=== PATIENT | male | born 1980 | race Hispanic/Latino ===

== ENCOUNTER 2018-03-10 04:37 | Emergency (ER) | payer SELFPAY ==
[2018-03-10] MEDS ORDERED: ONDANSETRON 4 MG/2 ML VIAL ONE (04:59)
[2018-03-10] MEDS ORDERED: NA CHLORIDE 0.9% 1,000 ML ONE (05:13)
[2018-03-10] MEDS ORDERED: FAMOTIDINE 20 MG/2 ML VIAL IV ONE (05:13)
[2018-03-10] MEDS ORDERED: KETOROLAC 30 MG/ML INJ ONE (05:22)
[2018-03-10 05:58] LABS: Absolute Lymphocytes (CBC) 0.7 K/uL (0.7-4.9); Absolute Monocytes 0.6 K/uL (0.1-1.3); Absolute Neutrophil 5.3 K/uL (1.8-8.0); Basophils % 0.2 % (0-1.3); Eosinophils % 1.6 % (0-4.4); Hematocrit 39.6 % (39.6-49.0); Lymphocytes % 10.5 % (15.3-44.8); MCH 32.7 pg (27.0-35.0); MCV 94.4 fL (80-100); MPV 8.1 fL (7.6-11.3); Monocytes % 8.6 % (3.3-12.3); RBC Red Blood Cell Count 4.19 M/uL (4.33-5.43)
[2018-03-10 06:11] LABS: ALT/SGPT 46 U/L (12-78); AST/SGOT 42 U/L (15-37); Albumin 3.5 g/dL (3.4-5.0); Alkaline Phosphatase 99 U/L (45-117); BUN Blood Urea Nitrogen 22 mg/dL (7-18); Bicarbonate 26 mmol/L (21-32); Bilirubin Direct 0.2 mg/dL (0-0.2); Bilirubin Total 0.7 mg/dL (0.2-1.0); Glucose Level 94 mg/dL (74-106); Lipase 113 U/L (73-393); Potassium 3.5 mmol/L (3.5-5.1); Protein, Total 6.9 g/dL (6.4-8.2); Sodium Level 142 mmol/L (136-145)
[2018-03-10 08:01] LABS: Urine Blood NEGATIVE (NEG); Urine Glucose NEGATIVE (NEG); Urine Protein NEGATIVE (NEG)
[2018-03-10 08:07] LABS: Urine RBC <5 /HPF (NONE SEEN)
--- NOTE | 2018-03-10 08:07 | RAD REPORT ---
EXAM DESCRIPTION: CTAbdomen Pelvis W Contrast - 03/10/2018 7:26 am CLINICAL HISTORY: Abdominal pain. ABD PAIN COMPARISON: No comparisons TECHNIQUE: Biphasic CT imaging of the abdomen and pelvis was performed with 100 ml non-ionic IV cont rast. All CT scans are performed using dose optimization technique as appropriate and may include automated exposure control or mA/KV adjustment according to patient size. FINDINGS: The lung bases are clear.Cholecystectomy clips. The liver, spleen, pancreas, adrenal glands and kidneys are within normal limits. No bowel obstruction, free air, free fluid or abscess. Scattered colonic diverticulosis. The appendix is normal. No evidence of significant lymphadenopathy. No suspicious bony findings. Hardware is present proximal left femur. IMPRESSION: No acute intra-abdominal or pelvic finding.
[2018-03-10 08:08] LABS: Urine Bacteria <20 /HPF (NONE SEEN); Urine Culture Reflex Order NOT NEEDED
--- NOTE | 2018-03-10 10:12 | ER ---
Nurse's Notes [facility] Name: Sal Woods Jr Age: 37 yrs Sex: Male : 1980 Arrival Date: 03/10/2018 Time: 04:38 Bed 19 Private MD: Diagnosis: Vomiting;Diarrhea, unspecified;Abdominal tenderness Presentation: 03/10 04:47 Presenting complaint: Patient states: N/V/D since yesterday afternoon. Transition of aa1 care: patient was not received from another setting of care. Onset of symptoms was March 09, 2018. Risk Assessment: Do you want to hurt yourself or someone else? Patient reports no desire to harm self or others. Initial Sepsis Screen: Does the patient meet any 2 criteria? No. Patient's initial sepsis screen is negative. Does the patient have a suspected source of infection? No. Patient's initial sepsis screen is negative. Care prior to arrival: None. 04:47 Method Of Arrival: Ambulatory aa1 04:47 Acuity: LOPEZ 3 aa1 Historical: - Allergies: 04:48 No Known Allergies; aa1 - Home Meds: 04:48 lisinopril 10 mg Oral tab 1 tab once daily [Active]; Synthroid 125 mcg Oral tab 1 tab aa1 once daily [Active]; clonazepam 2 mg Oral tab as needed [Active]; - PMHx: 04:48 Anxiety; Hypertension; Hypothyroidism; aa1 - PSHx: 04:48 Cholecystectomy; L femur sx; aa1 - Immunization history:: Flu vaccine is not up to date. - Social history:: Smoking status: Patient/guardian denies using tobacco. - Ebola Screening: : No symptoms or risks identified at this time. - Family history:: not pertinent. - Hospitalizations: : No recent hospitalization is reported. Screenin:48 Abuse screen: Denies threats or abuse. Nutritional screening: No deficits noted. ea Tuberculosis screening: No symptoms or risk factors identified. Fall Risk None identified. Assessment: 04:45 General: Appears uncomfortable, Behavior is calm, cooperative, appropriate for age. ea Pain: Complains of pain in right upper quadrant and left upper quadrant Pain currently is 8 out of 10 on a pain scale. Quality of pain is described as aching, crampy, Pain began gradually, Is continuous. Neuro: Level of Consciousness is awake, alert, obeys commands, Oriented to person, place, time, situation. Cardiovascular: Heart tones S1 S2 present Patient's skin is warm and dry. Respiratory: Airway is patent Respiratory effort is even, unlabored, Respiratory pattern is regular, symmetrical, Breath sounds are clear bilaterally. GI: Abdomen is round Bowel sounds present X 4 quads. Reports upper abdominal pain, diarrhea, nausea, vomiting. : No signs and/or symptoms were reported regarding the genitourinary system. EENT: No signs and/or symptoms were reported regarding the EENT system. Derm: Skin is dry, Skin is pale, Skin temperature is warm. Musculoskeletal: Circulation, motion, and sensation intact. 05:45 Reassessment: Patient and/or family updated on plan of care and expected duration. Pain ea level reassessed. Patient is alert, oriented x 3, equal unlabored respirations, skin warm/dry/pink. Patient states symptoms have improved. 06:12 Reassessment: Patient and/or family updated on plan of care and expected duration. Pain ea level reassessed. Patient is alert, oriented x 3, equal unlabored respirations, skin warm/dry/pink. 06:28 Reassessment: Pt taken to CT. ea 06:52 Reassessment: Patient and/or family updated on plan of care and expected duration. Pain ea level reassessed. Patient is alert, oriented x 3, equal unlabored respirations, skin warm/dry/pink. Pt returned from CT. 07:45 General: Appears in no apparent distress. comfortable, Behavior is calm, cooperative, jb4 appropriate for age. Pain: Complains of pain in epigastric area Pain currently is 2 out of 10 on a pain scale. Quality of pain is described as dull, Pain began 1 day ago. Is continuous. Neuro: Level of Consciousness is awake, alert, obeys commands, Oriented to person, place, time, situation. Cardiovascular: Heart tones S1 S2 present Patient's skin is warm and dry. Respiratory: Airway Respiratory effort is even, unlabored, Respiratory pattern is regular, symmetrical, Breath sounds are clear bilaterally. GI: Abdomen is round Bowel sounds present X 4 quads. Abd is soft and non tender X 4 quads. Abdomen is tender to palpation in epigastric area Reports. : No signs and/or symptoms were reported regarding the genitourinary system. EENT: No signs and/or symptoms were reported regarding the EENT system. Derm: Skin is intact, Skin is dry, Skin is normal, Skin temperature is warm. Musculoskeletal: 08:45 Reassessment: Patient and/or family updated on plan of care and expected duration. Pain jb4 level reassessed. Patient is alert, oriented x 3, equal unlabored respirations, skin warm/dry/pink. 09:21 Reassessment: Patient appears in no apparent distress at this time. Patient and/or tw2 family updated on plan of care and expected duration. Pain level reassessed. Patient is alert, oriented x 3, equal unlabored respirations, skin warm/dry/pink. 10:21 Reassessment: Patient appears in no apparent distress at this time. Patient and/or tw2 family updated on plan of care and expected duration. Pain level reassessed. Patient is alert, oriented x 3, equal unlabored respirations, skin warm/dry/pink. Vital Signs: 04:48 BP 130 / 88; Pulse 74; Resp 18; Temp 97.9; Pulse Ox 99% on R/A; Weight 97.52 kg; Height aa1 5 ft. 8 in. (172.72 cm); Pain 2/10; 05:30 BP 114 / 72; Pulse 65; Resp 18; Pulse Ox 98% on R/A; ea 06:00 BP 118 / 70; Pulse 68; Resp 18; Pulse Ox 98% ; ea 06:54 BP 129 / 84; Pulse 59; Resp 18; Pulse Ox 99% on R/A; ea 08:00 BP 123 / 95; Pulse 72; Resp 16; Pulse Ox 99% ; Pain 2/10; jb4 09:00 BP 113 / 71; Pulse 52; Resp 18; Pulse Ox 97% on R/A; Pain 0/10; jb4 10:21 BP 104 / 69; Pulse 51; Resp 18; Pulse Ox 99% on R/A; tw2 04:48 Body Mass Index 32.69 (97.52 kg, 172.72 cm) aa1 ED Course: 04:38 Patient arrived in ED. do 04:44 Yana Tavares, MOSHE is Primary Nurse. ea 04:46 Juan J Veliz MD is Attending Physician. wa 04:47 Triage completed. aa1 04:48 Arm band placed on right wrist. Patient placed in an exam room, on a stretcher, on ea pulse oximetry. 04:48 Patient has correct armband on for positive identification. Bed in low position. Call ea light in reach. Side rails up X 1. 05:39 Lab(s) recollected, by me, sent to lab. aa1 05:49 Inserted saline lock: 20 gauge in left antecubital area, using aseptic technique. oe 06:[address] via wheelchair. kw1 06:40 CT Abd/Pelvis - W/Contrast In Process Unspecified. EDMS 06:45 CT completed. Patient tolerated procedure well. Patient moved back from CT. kw1 07:03 Report given to Raymond MESA. ea 07:48 Raymond Pat, MOSHE is Primary Nurse. hj 08:16 Attending Physician role handed off by Juan J Veliz MD estelle 08:16 James Rivera MD is Attending Physician. estelle 09:20 Primary Nurse role handed off by Raymond Pat, MOSHE tw2 09:20 Susan Mendez RN is Primary Nurse. tw2 10:21 No provider procedures requiring assistance completed. IV discontinued, intact, tw2 bleeding controlled, No redness/swelling at site. Pressure dressing applied. Administered Medications: 05:14 Drug: Zofran 4 mg Route: IVP; Site: left antecubital; ea 06:07 Follow up: Response: No adverse reaction; Marked relief of symptoms ea 07:49 Follow up: Response: Nausea is decreased hj 05:14 Drug: Pepcid 20 mg Route: IVP; Site: left antecubital; ea 06:07 Follow up: Response: No adverse reaction ea 07:48 Follow up: Response: No adverse reaction hj 05:14 Drug: NS 0.9% 1000 ml Route: IV; Rate: 1 bolus; Site: left antecubital; ea 06:05 Follow up: Response: No adverse reaction; IV Status: Completed infusion; IV Intake: ea 1000ml 07:48 Follow up: IV Status: Completed infusion hj 06:05 Drug: TORadol 30 mg Route: IVP; Site: left antecubital; ea 07:48 Follow up: Response: No adverse reaction; Pain is decreased hj Intake: 06:05 IV: 1000ml; Total: 1000ml. ea Outcome: 10:12 Discharge ordered by . estelle 10:21 Discharged to home ambulatory. tw2 10:21 Condition: stable 10:21 Discharge instructions given to patient, Instructed on discharge instructions, follow up and referral plans. no drinking with medication, no driving heavy equipment, medication usage, Demonstrated understanding of instructions, follow-up care, medications, Prescriptions given X 3. 10:22 Patient left the ED. tw2 Signatures: Dispatcher [employer] EDMS Brittani Perry, RN RN aa1 James Rivera MD MD cha Joaquin, Henry RN RN Aparna Alicia Tara, RN RN tw2 Justin Galvin RN RN jb4 Arnoldo Aleman Elena, RN RN ea Appiah, William, MD MD wa Wilhelm, Kimberly kw1 Corrections: (The following items were deleted from the chart) 09:26 09:24 BP 113 / 71; Pulse 52bpm; Resp 18bpm; Pulse Ox 97% RA; jb4 jb4
--- NOTE | 2018-03-10 10:12 | EDPHYS ---
Physician Documentation [facility] Name: Sal Woods Jr Age: 37 yrs Sex: Male : 1980 Arrival Date: 03/10/2018 Time: 04:38 Bed 19 Private MD: ED Physician James Rivera HPI: 03/10 06:11 This 37 yrs old Male presents to ER via Ambulatory with complaints of wa Nausea/Vomiting/Diarrhea. 06:11 The patient presents to the emergency department with nausea, vomiting, diarrhea, wa abdominal pain, of the abdomen, described as achy, and does not radiate. Onset: The symptoms/episode began/occurred just prior to arrival. Possible causes: unknown. The symptoms are aggravated by nothing. The symptoms are alleviated by nothing. Associated signs and symptoms: Pertinent positives: abdominal pain, diarrhea, nausea, vomiting. Severity of symptoms: At their worst the symptoms were moderate in the emergency department the symptoms are unchanged. The patient has not experienced similar symptoms in the past. The patient has not recently seen a physician. Historical: - Allergies: 04:48 No Known Allergies; aa1 - Home Meds: 04:48 lisinopril 10 mg Oral tab 1 tab once daily [Active]; Synthroid 125 mcg Oral tab 1 tab aa1 once daily [Active]; clonazepam 2 mg Oral tab as needed [Active]; - PMHx: 04:48 Anxiety; Hypertension; Hypothyroidism; aa1 - PSHx: 04:48 Cholecystectomy; L femur sx; aa1 - Immunization history:: Flu vaccine is not up to date. - Social history:: Smoking status: Patient/guardian denies using tobacco. - Ebola Screening: : No symptoms or risks identified at this time. - Family history:: not pertinent. - Hospitalizations: : No recent hospitalization is reported. ROS: 06:12 Constitutional: Negative for fever, chills, and weight loss, Eyes: Negative for injury, wa pain, redness, and discharge, ENT: Negative for injury, pain, and discharge, Neck: Negative for injury, pain, and swelling, Cardiovascular: Negative for chest pain, palpitations, and edema, Respiratory: Negative for shortness of breath, cough, wheezing, and pleuritic chest pain, Back: Negative for injury and pain, : Negative for injury, bleeding, discharge, and swelling, MS/Extremity: Negative for injury and deformity, Skin: Negative for injury, rash, and discoloration, Neuro: Negative for headache, weakness, numbness, tingling, and seizure, Psych: Negative for depression, anxiety, suicide ideation, homicidal ideation, and hallucinations. 06:12 Abdomen/GI: Positive for abdominal pain, nausea, vomiting, diarrhea. Exam: 06:13 Constitutional: This is a well developed, well nourished patient who is awake, alert, wa and in no acute distress. Head/Face: Normocephalic, atraumatic. Eyes: Pupils equal round and reactive to light, extra-ocular motions intact. Lids and lashes normal. Conjunctiva and sclera are non-icteric and not injected. Cornea within normal limits. Periorbital areas with no swelling, redness, or edema. ENT: Nares patent. No nasal discharge, no septal abnormalities noted. Tympanic membranes are normal and external auditory canals are clear. Oropharynx with no redness, swelling, or masses, exudates, or evidence of obstruction, uvula midline. Mucous membranes moist. Neck: Trachea midline, no thyromegaly or masses palpated, and no cervical lymphadenopathy. Supple, full range of motion without nuchal rigidity, or vertebral point tenderness. No Meningismus. Chest/axilla: Normal chest wall appearance and motion. Nontender with no deformity. No lesions are appreciated. Cardiovascular: Regular rate and rhythm with a normal S1 and S2. No gallops, murmurs, or rubs. Normal PMI, no JVD. No pulse deficits. Respiratory: Lungs have equal breath sounds bilaterally, clear to auscultation and percussion. No rales, rhonchi or wheezes noted. No increased work of breathing, no retractions or nasal flaring. Back: No spinal tenderness. No costovertebral tenderness. Full range of motion. Skin: Warm, dry with normal turgor. Normal color with no rashes, no lesions, and no evidence of cellulitis. MS/ Extremity: Pulses equal, no cyanosis. Neurovascular intact. Full, normal range of motion. Neuro: Awake and alert, GCS 15, oriented to person, place, time, and situation. Cranial nerves II-XII grossly intact. Motor strength 5/5 in all extremities. Sensory grossly intact. Cerebellar exam normal. Normal gait. Psych: Awake, alert, with orientation to person, place and time. Behavior, mood, and affect are within normal limits. 06:13 Abdomen/GI: Inspection: abdomen appears normal, Bowel sounds: normal, in all quadrants, Palpation: soft, in all quadrants, mild abdominal tenderness, in the epigastric area, right upper quadrant and left upper quadrant. Vital Signs: 04:48 BP 130 / 88; Pulse 74; Resp 18; Temp 97.9; Pulse Ox 99% on R/A; Weight 97.52 kg; Height aa1 5 ft. 8 in. (172.72 cm); Pain 2/10; 05:30 BP 114 / 72; Pulse 65; Resp 18; Pulse Ox 98% on R/A; ea 06:00 BP 118 / 70; Pulse 68; Resp 18; Pulse Ox 98% ; ea 06:54 BP 129 / 84; Pulse 59; Resp 18; Pulse Ox 99% on R/A; ea 08:00 BP 123 / 95; Pulse 72; Resp 16; Pulse Ox 99% ; Pain 2/10; jb4 09:00 BP 113 / 71; Pulse 52; Resp 18; Pulse Ox 97% on R/A; Pain 0/10; jb4 10:21 BP 104 / 69; Pulse 51; Resp 18; Pulse Ox 99% on R/A; tw2 04:48 Body Mass Index 32.69 (97.52 kg, 172.72 cm) aa1 MDM: 04:46 Patient medically screened. ks 06:13 Differential diagnosis: Nonspecific abd pain, cholecystitis, pancreatitis, viral ks gastroenteritis, gastroenteritis. 03/11 06:59 Data reviewed: vital signs, nurses notes. Test interpretation: by ED physician or ks midlevel provider: labs noted wnl. CT abd/pelvis: no acute process. Response to treatment: the patient's symptoms have markedly improved after treatment. 03/10 04:54 Order name: Basic Metabolic Panel; Complete Time: 07:02 ks 03/10 04:54 Order name: CBC with Diff; Complete Time: 06:10 ks 03/10 04:54 Order name: Hepatic Function; Complete Time: 07:02 03/10 04:54 Order name: Lipase; Complete Time: 07:02 ks 03/10 04:54 Order name: Urine Microscopic Only; Complete Time: 10:06 ks 03/10 07:56 Order name: Urine Dipstick--Ancillary (enter results); Complete Time: 10:06 03/10 04:54 Order name: IV Saline Lock; Complete Time: 05:42 ks 03/10 04:54 Order name: Labs collected and sent; Complete Time: 05:43 ks 03/10 04:54 Order name: Urine Dipstick-Ancillary (obtain specimen); Complete Time: 08:07 ks 03/10 06:11 Order name: CT Abd/Pelvis - W/Contrast; Complete Time: 10:06 ks Administered Medications: 03/10 05:14 Drug: Zofran 4 mg Route: IVP; Site: left antecubital; ea 06:07 Follow up: Response: No adverse reaction; Marked relief of symptoms ea 07:49 Follow up: Response: Nausea is decreased hj 05:14 Drug: Pepcid 20 mg Route: IVP; Site: left antecubital; ea 06:07 Follow up: Response: No adverse reaction ea 07:48 Follow up: Response: No adverse reaction hj 05:14 Drug: NS 0.9% 1000 ml Route: IV; Rate: 1 bolus; Site: left antecubital; ea 06:05 Follow up: Response: No adverse reaction; IV Status: Completed infusion; IV Intake: ea 1000ml 07:48 Follow up: IV Status: Completed infusion hj 06:05 Drug: TORadol 30 mg Route: IVP; Site: left antecubital; ea 07:48 Follow up: Response: No adverse reaction; Pain is decreased hj Disposition: 03/10/18 10:12 Discharged to Home. Impression: Vomiting, Diarrhea, unspecified, Abdominal tenderness. - Condition is Stable. - Discharge Instructions: Abdominal Pain, Adult, Food Choices to Help Relieve Diarrhea, Adult, Diarrhea, Adult, Nausea and Vomiting, Adult, Nausea and Vomiting, Adult, [id number], Abdominal Pain, Adult, [id number], Diarrhea, Adult, Tebz-sw-[id number]. - Prescriptions for Bentyl 20 mg Oral Tablet - take 1 tablet by ORAL route every 6 hours As needed; 20 tablet. Pepcid 20 mg Oral Tablet - take 1 tablet by ORAL route every 12 hours for 10 days; 20 tablet. Zofran 4 mg Oral Tablet - take 1 tablet by ORAL route every 12 hours As needed; 20 tablet. - Medication Reconciliation Form, Thank You Letter, Antibiotic Education, Prescription Opioid Use, Work release form form. - Follow up: Private Physician; When: 2 - 3 days; Reason: Recheck today's complaints, Continuance of care, Re-evaluation by your physician. - Problem is new. - Symptoms have improved. Signatures: Dispatcher [employer] EDBrittani Corcoran, RN RN aa1 James Rivera MD MD cha Wise, Tara, RN RN tw2 Yana Tavares RN RN Juan J Lovelace MD MD wa Joaquin, Henry RN hj Corrections: (The following items were deleted from the chart) 10:22 10:12 03/10/2018 10:12 Discharged to Home. Impression: Vomiting; Diarrhea, unspecified; tw2 Abdominal tenderness. Condition is Stable. Forms are Work release form, Medication Reconciliation Form, Thank You Letter, Antibiotic Education, Prescription Opioid Use. Follow up: Private Physician; When: 2 - 3 days; Reason: Recheck today's complaints, Continuance of care, Re-evaluation by your physician. Problem is new. Symptoms have improved. estelle
== END 2018-03-10 10:22 | disposition home or self-care (01) ==
LOC: ER 04:37
DX: R11.2 Nausea with vomiting, unspecified (principal); R19.7 Diarrhea, unspecified; R10.9 Unspecified abdominal pain; I10 Essential (primary) hypertension; E03.9 Hypothyroidism, unspecified
CPT/HCPCS: 36415; 74177; 80048; 80076; 81003; 81015; 83690; 85025; 96361; 96374; 96375; 99284; J2405; J7030; Q9967

== ENCOUNTER 2018-03-15 11:31 | Emergency (ER) | payer SELFPAY ==
[2018-03-15] MEDS ORDERED: DOXYCYCLINE 100 MG CAP PO ONE (11:51)
[2018-03-15] MEDS ORDERED: TETANUS & DIPHTHERIA TOX,ADULT 0.5 ML VIAL ONE (11:51)
--- NOTE | 2018-03-15 11:53 | ER ---
Nurse's Notes [facility] Name: Sal Woods Jr Age: 37 yrs Sex: Male : 1980 Arrival Date: 03/15/2018 Time: 11:33 Bed 17 Private MD: Diagnosis: Puncture wound without foreign body of left hand Presentation: 03/15 11:41 Presenting complaint: Patient states: was stuck in left hand by catfish fin between iw webbing of thumb and index finger, has redness and swelling at puncture site. Transition of care: patient was not received from another setting of care. Onset of symptoms was March 14, 2018. Risk Assessment: Do you want to hurt yourself or someone else? Patient reports no desire to harm self or others. Initial Sepsis Screen: Does the patient meet any 2 criteria? No. Patient's initial sepsis screen is negative. Does the patient have a suspected source of infection? No. Patient's initial sepsis screen is negative. Care prior to arrival: None. 11:41 Method Of Arrival: Ambulatory iw 11:41 Acuity: LOPEZ 4 iw Historical: - Allergies: 11:44 NKA; iw - Home Meds: 11:44 clonazepam 2 mg Oral tab as needed [Active]; lisinopril 10 mg Oral tab 1 tab once daily iw [Active]; Synthroid 125 mcg Oral tab 1 tab once daily [Active]; - PMHx: 11:44 Anxiety; Hypertension; Hypothyroidism; iw - PSHx: 11:44 Cholecystectomy; L femur sx; iw - Immunization history:: Adult Immunizations Last tetanus immunization: unknown. - Social history:: Smoking status: Patient/guardian denies using tobacco. - Ebola Screening: : Patient negative for fever greater than or equal to 101.5 degrees Fahrenheit, and additional compatible Ebola Virus Disease symptoms Patient denies exposure to infectious person Patient denies travel to an Ebola-affected area in the 21 days before illness onset No symptoms or risks identified at this time. Screenin:57 Abuse screen: Denies threats or abuse. Nutritional screening: No deficits noted. em Tuberculosis screening: No symptoms or risk factors identified. Fall Risk None identified. Assessment: 11:58 General: Appears in no apparent distress. comfortable, Behavior is calm, cooperative, em Reports catfish jose stuck in left hand between webbing of thumb and index finger, small puncture wound noted, with clear drainage. Pain: Complains of pain in Left first web space Pain currently is 3 out of 10 on a pain scale. Neuro: Level of Consciousness is awake, alert, obeys commands, Oriented to person, place, time, situation. Cardiovascular: Capillary refill < 3 seconds Patient's skin is warm and dry. Respiratory: Airway is patent Respiratory effort is even, unlabored, Respiratory pattern is regular, symmetrical. GI: Abdomen is round. : No signs and/or symptoms were reported regarding the genitourinary system. Derm: Wound noted Left first web space. Musculoskeletal: Range of motion: intact in all extremities. 12:05 Reassessment: Patient appears in no apparent distress at this time. I agree with above iw assessment by John Cardoza LVN. Vital Signs: 11:44 BP 128 / 88; Pulse 58; Resp 16 S; Temp 98.2; Pulse Ox 98% on R/A; Weight 97.52 kg; em Height 5 ft. 8 in. (172.72 cm); Pain 210; 11:44 Body Mass Index 32.69 (97.52 kg, 172.72 cm) em ED Course: 11:33 Patient arrived in ED. rg4 11:37 Elmer White PA is PHCP. jr8 11:37 James Rivera MD is Attending Physician. jr8 11:41 John Cardoza LVN is Primary Nurse. em 11:43 Triage completed. iw 11:44 Arm band placed on. iw 11:57 Patient has correct armband on for positive identification. em 12:01 No provider procedures requiring assistance completed. Patient did not have IV access em during this emergency room visit. Administered Medications: 11:55 Drug: Tetanus-Diphtheria Toxoid Adult 0.5 ml {Employment Trainer: [employer]. Exp: em 04/30/2019. Lot #: [id number]. } Route: IM; Site: left deltoid; 12:10 Follow up: Response: No adverse reaction em 11:55 Drug: Doxycycline 100 mg Route: PO; em 12:11 Follow up: Response: No adverse reaction em Outcome: 11:52 Discharge ordered by . jr8 12:11 Discharged to home ambulatory. em 12:11 Condition: good 12:11 Discharge instructions given to patient, Instructed on discharge instructions, follow up and referral plans. medication usage, Demonstrated understanding of instructions, follow-up care, medications, wound care. 12:12 Patient left the ED. em Signatures: John Cardoza LVN MEDICAL EQUIPMENT REPAIRER em Kala Hyman RN RN iw Elmer White PA PA jr8 Milagros Ortega rg4 Corrections: (The following items were deleted from the chart) 11:56 11:44 Pulse 58bpm; Resp 16bpm; Spontaneous; Pulse Ox 98% RA; Temp 98.2F; 97.52 kg; em Height 5 ft. 8 in.; BMI: 32.6; Pain 2/10; iw
--- NOTE | 2018-03-15 11:53 | EDPHYS ---
Physician Documentation [facility] Name: Sal Woods Jr Age: 37 yrs Sex: Male : 1980 Arrival Date: 03/15/2018 Time: 11:33 Bed 17 Private MD: ED Physician James Rivera HPI: 03/15 11:45 This 37 yrs old Male presents to ER via Ambulatory with complaints of Hand jr8 Swelling. 11:45 The patient or guardian reports pain, a puncture wound, fish jose. The complaints jr8 affect the 1st web space left hand . Onset: The symptoms/episode began/occurred acutely, yesterday. Modifying factors: The symptoms are alleviated by nothing, the symptoms are aggravated by movement. Associated signs and symptoms: The patient has no apparent associated signs or symptoms. Severity of symptoms: At their worst the symptoms were mild, in the emergency department the symptoms are unchanged. The patient has not experienced similar symptoms in the past. The patient has not recently seen a physician. Was fishing and was punctured by catfish jose in hand . Historical: - Allergies: 11:44 NKA; iw - Home Meds: 11:44 clonazepam 2 mg Oral tab as needed [Active]; lisinopril 10 mg Oral tab 1 tab once daily iw [Active]; Synthroid 125 mcg Oral tab 1 tab once daily [Active]; - PMHx: 11:44 Anxiety; Hypertension; Hypothyroidism; iw - PSHx: 11:44 Cholecystectomy; L femur sx; iw - Immunization history:: Adult Immunizations Last tetanus immunization: unknown. - Social history:: Smoking status: Patient/guardian denies using tobacco. - Ebola Screening: : Patient negative for fever greater than or equal to 101.5 degrees Fahrenheit, and additional compatible Ebola Virus Disease symptoms Patient denies exposure to infectious person Patient denies travel to an Ebola-affected area in the 21 days before illness onset No symptoms or risks identified at this time. ROS: 11:45 Eyes: Negative for injury, pain, redness, and discharge, ENT: Negative for injury, jr8 pain, and discharge, Neck: Negative for injury, pain, and swelling, Cardiovascular: Negative for chest pain, palpitations, and edema, Respiratory: Negative for shortness of breath, cough, wheezing, and pleuritic chest pain, Abdomen/GI: Negative for abdominal pain, nausea, vomiting, diarrhea, and constipation, Back: Negative for injury and pain, Skin: Negative for injury, rash, and discoloration, Neuro: Negative for headache, weakness, numbness, tingling, and seizure. 11:45 MS/extremity: Positive for pain, puncture, tenderness, of the 1st web space left hand. Exam: 11:45 Cardiovascular: Regular rate and rhythm with a normal S1 and S2. No gallops, murmurs, jr8 or rubs. Normal PMI, no JVD. No pulse deficits. Respiratory: Lungs have equal breath sounds bilaterally, clear to auscultation and percussion. No rales, rhonchi or wheezes noted. No increased work of breathing, no retractions or nasal flaring. Skin: Warm, dry with normal turgor. Normal color with no rashes, no lesions, and no evidence of cellulitis. Neuro: Awake and alert, GCS 15, oriented to person, place, time, and situation. Cranial nerves II-XII grossly intact. Motor strength 5/5 in all extremities. Sensory grossly intact. Cerebellar exam normal. Normal gait. 11:45 Musculoskeletal/extremity: Extremities: grossly normal except: noted in the 1st web space left hand: pain, puncture, ROM: intact in all extremities, full active range of motion, full passive range of motion, Circulation is intact in all extremities. Sensation intact. Vital Signs: 11:44 BP 128 / 88; Pulse 58; Resp 16 S; Temp 98.2; Pulse Ox 98% on R/A; Weight 97.52 kg; em Height 5 ft. 8 in. (172.72 cm); Pain 2/10; 11:44 Body Mass Index 32.69 (97.52 kg, 172.72 cm) em MDM: 11:38 Patient medically screened. jr8 11:51 Data reviewed: vital signs, nurses notes, and as a result, I will discharge patient. jr8 Data interpreted: Pulse oximetry: on room air is 98 %. Interpretation: normal. Counseling: I had a detailed discussion with the patient and/or guardian regarding: the historical points, exam findings, and any diagnostic results supporting the discharge/admit diagnosis, the need for outpatient follow up, a family practitioner, to return to the emergency department if symptoms worsen or persist or if there are any questions or concerns that arise at home. ED course: return precautions give. S/S given to patient that would show that it is becoming infected . Administered Medications: 11:55 Drug: Tetanus-Diphtheria Toxoid Adult 0.5 ml {Pouncer: [address] Exp: em 04/30/2019. Lot #: [id number]. } Route: IM; Site: left deltoid; 12:10 Follow up: Response: No adverse reaction em 11:55 Drug: Doxycycline 100 mg Route: PO; em 12:11 Follow up: Response: No adverse reaction em Disposition: 03/15/18 11:52 Discharged to Home. Impression: Puncture wound without foreign body of left hand. - Condition is Stable. - Discharge Instructions: Puncture Wound. - Prescriptions for Doxycycline Monohydrate 100 mg Oral Tablet - take 1 tablet by ORAL route every 12 hours for 10 days; 20 tablet. - Medication Reconciliation Form, Thank You Letter, Antibiotic Education, Prescription Opioid Use form. - Follow up: Private Physician; When: 5 - 6 days; Reason: Recheck today's complaints, Continuance of care, Re-evaluation by your physician. - Problem is new. - Symptoms have improved. Addendum: 03/16/2018 14:18 Co-signature as Attending Physician, James Rivera MD I agree with the assessment and c bradley plan of care. Signatures: James Rivera MD MD cha Munoz, Edgar, AMBULATORY CARE AMBULATORY CARE em Kala Hyman RN RN iw Roszak, Josh, PA PA jr8 Corrections: (The following items were deleted from the chart) 03/15 12:12 11:52 03/15/2018 11:52 Discharged to Home. Impression: Puncture wound without foreign em body of left hand. Condition is Stable. Forms are Medication Reconciliation Form, Thank You Letter, Antibiotic Education, Prescription Opioid Use. Follow up: Private Physician; When: 5 - 6 days; Reason: Recheck today's complaints, Continuance of care, Re-evaluation by your physician. Problem is new. Symptoms have improved. jr8
== END 2018-03-15 12:12 | disposition home or self-care (01) ==
LOC: ER 11:31
DX: S61.432A Puncture wound without foreign body of left hand, initial encounter (principal); W26.8XXA Contact with other sharp object(s), not elsewhere classified, initial encounter; Y93.89 Activity, other specified; Y92.838 Other recreation area as the place of occurrence of the external cause; I10 Essential (primary) hypertension; E03.9 Hypothyroidism, unspecified; Z23 Encounter for immunization
CPT/HCPCS: 90714; 99283

== ENCOUNTER 2019-06-15 04:51 | Emergency (ER) | payer SELFPAY ==
[2019-06-15] MEDS ORDERED: NA CHLORIDE 0.9% 1,000 ML ONE (05:17)
[2019-06-15] MEDS ORDERED: ONDANSETRON 4 MG/2 ML VIAL ONE (05:17)
[2019-06-15] MEDS ORDERED: DIPHENOX/ATROP SULF 1 TAB PO ONE (05:17)
[2019-06-15 05:19] LABS: Absolute Lymphocytes (CBC) 0.7 K/uL (0.7-4.9); Basophils % 0.5 % (0-1.3); Hematocrit 40.8 % (39.6-49.0); Lymphocytes % 15.4 % (15.3-44.8); MPV 7.6 fL (7.6-11.3); RBC Red Blood Cell Count 4.26 M/uL (4.33-5.43)
[2019-06-15 05:46] LABS: ALT/SGPT 65 U/L (12-78); AST/SGOT 54 U/L (15-37); Albumin 4.2 g/dL (3.4-5.0); Alkaline Phosphatase 74 U/L (45-117); BUN Blood Urea Nitrogen 13 mg/dL (7-18); Bicarbonate 26 mmol/L (21-32); Bilirubin Direct 0.2 mg/dL (0-0.2); Bilirubin Total 0.5 mg/dL (0.2-1.0); Glucose Level 99 mg/dL (74-106); Lipase 146 U/L (73-393); Potassium 3.6 mmol/L (3.5-5.1); Sodium Level 139 mmol/L (136-145)
[2019-06-15] MEDS ORDERED: DICYCLOMINE HCL 10 MG CAP ONE (06:13)
[2019-06-15] MEDS ORDERED: LIDOCAINE VISCOUS 2% SOLN 15 ML UDC ONE (06:13)
[2019-06-15] MEDS ORDERED: MAGNE/ALUM HYDROXD 30 ML UCUP ONE (06:13)
--- NOTE | 2019-06-15 06:20 | ER ---
Nurse's Notes [facility] Name: Sal Woods Jr Age: 39 yrs Sex: Male : 1980 Arrival Date: 06/15/2019 Time: 04:52 Bed 8 Private MD: Diagnosis: Nausea and vomiting;Diarrhea, unspecified Presentation: 06/15 05:00 Presenting complaint: Patient states: he started having nausea and vomiting since bb yesterday with intermittent upper left chest pain. Transition of care: patient was not received from another setting of care. Onset of symptoms was June 14, 2019. Risk Assessment: Do you want to hurt yourself or someone else? Patient reports no desire to harm self or others. Initial Sepsis Screen: Does the patient meet any 2 criteria? No. Patient's initial sepsis screen is negative. Does the patient have a suspected source of infection? No. Patient's initial sepsis screen is negative. Care prior to arrival: None. 05:00 Method Of Arrival: Ambulatory bb 05:00 Acuity: LOPEZ 3 bb Historical: - Allergies: 05:24 NKA; bb - Home Meds: 05:24 clonazepam 2 mg Oral tab as needed [Active]; lisinopril 10 mg Oral tab 1 tab once daily bb [Active]; levothyroxine oral [Active]; - PMHx: 05:24 Anxiety; Hypertension; Hypothyroidism; bb - PSHx: 05:24 Cholecystectomy; femur; bb - Immunization history:: Adult Immunizations up to date. - Social history:: Smoking status: Patient/guardian denies using tobacco, Patient uses alcohol, occasionally. - Ebola Screening: : No symptoms or risks identified at this time. Screenin:47 Abuse screen: Denies threats or abuse. Denies injuries from another. Nutritional ak1 screening: No deficits noted. Tuberculosis screening: No symptoms or risk factors identified. Fall Risk None identified. Assessment: 05:30 General: Appears uncomfortable, Behavior is cooperative, anxious. Pain: Complains of ak1 pain in left supraclavicular area, left clavicle and anterior aspect of left upper chest. Neuro: Level of Consciousness is awake, alert, obeys commands, Oriented to person, place, time, situation, Band Shover are equal bilaterally Moves all extremities. Full function Gait is steady, Speech is normal. Cardiovascular: No deficits noted. Respiratory: No deficits noted. GI: Abdomen is round obese, Reports diarrhea, nausea, vomiting. : No signs and/or symptoms were reported regarding the genitourinary system. EENT: No signs and/or symptoms were reported regarding the EENT system. Derm: No signs and/or symptoms reported regarding the dermatologic system. Musculoskeletal: No signs and/or symptoms reported regarding the musculoskeletal system. 05:52 Reassessment: Patient appears in no apparent distress at this time. Patient and/or ak1 family updated on plan of care and expected duration. Pain level reassessed. Patient is alert, oriented x 3, equal unlabored respirations, skin warm/dry/pink. pt asked to go to restroom. no vomiting noted while in ER. pt informed of lab results. 06:15 Reassessment: pt stated after going to the restroom he developed pain in his upper ak1 right abd. pt denies vomiting in the bathroom. Dr. Martinez informed with new orders given. 06:28 Reassessment: Dr. Martinez notified of pt vitals, pt has missed his dose of lisinopril ak1 yesterday and today. Dr. Martinez stated pt can take his dose this morning when he gets home. Vital Signs: 05:00 BP 163 / 125; Pulse 97; Resp 16 S; Temp 98.1; Pulse Ox 100% on R/A; Weight 99.79 kg bb (R); Height 5 ft. 8 in. (172.72 cm) (R); Pain 5/10; 05:30 Pulse 78; Resp 16; Pulse Ox 97% on R/A; ak1 05:52 BP 161 / 114; Pulse 79; Resp 16; Pulse Ox 97% on R/A; ak1 05:00 Body Mass Index 33.45 (99.79 kg, 172.72 cm) bb ED Course: 04:52 Patient arrived in ED. ds1 05:00 Arm band placed on Patient placed in an exam room, on a stretcher, on pulse oximetry. bb 05:00 Inserted saline lock: 20 gauge in right antecubital area, using aseptic technique. ak1 Blood collected. 05:06 Korin Hedrick, MOSHE is Primary Nurse. ak1 05:06 Ronald Martinez MD is Attending Physician. tw4 05:23 Triage completed. bb 05:48 Patient has correct armband on for positive identification. Placed in gown. Bed in low ak1 position. Call light in reach. Side rails up X 1. Pulse ox on. NIBP on. 06:30 No provider procedures requiring assistance completed. ak1 06:41 IV discontinued, intact, bleeding controlled, No redness/swelling at site. Pressure ak1 dressing applied. Administered Medications: 05:29 Drug: NS 0.9% 1000 ml Route: IV; Rate: 1 bolus; Site: right antecubital; ak1 06:34 Follow up: IV Status: Completed infusion; IV Intake: 1000ml ak1 05:29 Drug: Zofran 4 mg Route: IVP; Site: right antecubital; ak1 05:52 Follow up: Response: No adverse reaction ak1 05:52 Drug: LoMOTIL 1 tabs Route: PO; ak1 06:15 Follow up: Response: No adverse reaction ak1 06:22 Drug: GI Cocktail with - (Phenobarbital-Belladonna 10 ml, Maalox Suspension 30 ak1 ml, Lidocaine Liquid 2 % 20 ml) Route: PO; 06:34 Follow up: Response: No adverse reaction ak1 06:22 Drug: Bentyl 20 mg Route: PO; ak1 06:34 Follow up: Response: No adverse reaction ak1 Intake: 06:34 IV: 1000ml; Total: 1000ml. ak1 Outcome: 06:19 Discharge ordered by . tw4 06:41 Discharged to home ambulatory. ak1 06:41 Condition: good 06:41 Discharge instructions given to patient, Instructed on discharge instructions, follow up and referral plans. no drinking with medication, no driving heavy equipment, medication usage, Demonstrated understanding of instructions, follow-up care, medications, Prescriptions given X 2. 06:41 Patient left the ED. ak1 Signatures: Mouna Leija Brenda, RN RN Korin Calderon RN RN ak1 Ronald Martinez MD MD tw4
--- NOTE | 2019-06-15 06:21 | EDPHYS ---
Physician Documentation [facility] Name: Sal Woods Jr Age: 39 yrs Sex: Male : 1980 Arrival Date: 06/15/2019 Time: 04:52 Bed 8 Private MD: ED Physician Ronald Martinez HPI: 06/15 05:56 This 39 yrs old Male presents to ER via Ambulatory with complaints of tw4 Vomiting/Diarrhea. 05:56 The patient presents to the emergency department with nausea, vomiting, diarrhea. tw4 Onset: The symptoms/episode began/occurred 2 week(s) ago. Possible causes: unknown. The symptoms are aggravated by nothing. The symptoms are alleviated by nothing. Associated signs and symptoms: Pertinent positives: abdominal pain, Pertinent negatives: anorexia, belching, constipation, diarrhea, dysuria, fever, flatulence, GI bleeding, hematuria. The patient has not experienced similar symptoms in the past. Historical: - Allergies: 05:24 NKA; bb - Home Meds: 05:24 clonazepam 2 mg Oral tab as needed [Active]; lisinopril 10 mg Oral tab 1 tab once daily bb [Active]; levothyroxine oral [Active]; - PMHx: 05:24 Anxiety; Hypertension; Hypothyroidism; bb - PSHx: 05:24 Cholecystectomy; femur; bb - Immunization history:: Adult Immunizations up to date. - Social history:: Smoking status: Patient/guardian denies using tobacco, Patient uses alcohol, occasionally. - Ebola Screening: : No symptoms or risks identified at this time. ROS: 05:56 Constitutional: Negative for fever, chills, and weight loss, Eyes: Negative for injury, tw4 pain, redness, and discharge, Cardiovascular: Negative for chest pain, palpitations, and edema, Respiratory: Negative for shortness of breath, cough, wheezing, and pleuritic chest pain, Back: Negative for injury and pain, MS/Extremity: Negative for injury and deformity, Skin: Negative for injury, rash, and discoloration, Neuro: Negative for headache, weakness, numbness, tingling, and seizure. 05:56 Abdomen/GI: Positive for nausea and vomiting, nausea, vomiting, and diarrhea, nausea, vomiting, diarrhea, Negative for abdominal pain, abdominal cramps, abdominal distension, anorexia, dysphagia, black/tarry stool, rectal pain, rectal bleeding, bowel incontinence. Exam: 05:56 Constitutional: This is a well developed, well nourished patient who is awake, alert, tw4 and in no acute distress. Head/Face: Normocephalic, atraumatic. Chest/axilla: Normal chest wall appearance and motion. Nontender with no deformity. No lesions are appreciated. Cardiovascular: Regular rate and rhythm with a normal S1 and S2. No gallops, murmurs, or rubs. Normal PMI, no JVD. No pulse deficits. Respiratory: Lungs have equal breath sounds bilaterally, clear to auscultation and percussion. No rales, rhonchi or wheezes noted. No increased work of breathing, no retractions or nasal flaring. Back: No spinal tenderness. No costovertebral tenderness. Full range of motion. Skin: Warm, dry with normal turgor. Normal color with no rashes, no lesions, and no evidence of cellulitis. MS/ Extremity: Pulses equal, no cyanosis. Neurovascular intact. Full, normal range of motion. Neuro: Awake and alert, GCS 15, oriented to person, place, time, and situation. Cranial nerves II-XII grossly intact. Motor strength 5/5 in all extremities. Sensory grossly intact. Cerebellar exam normal. Normal gait. Vital Signs: 05:00 BP 163 / 125; Pulse 97; Resp 16 S; Temp 98.1; Pulse Ox 100% on R/A; Weight 99.79 kg bb (R); Height 5 ft. 8 in. (172.72 cm) (R); Pain 5/10; 05:30 Pulse 78; Resp 16; Pulse Ox 97% on R/A; ak1 05:52 BP 161 / 114; Pulse 79; Resp 16; Pulse Ox 97% on R/A; ak1 05:00 Body Mass Index 33.45 (99.79 kg, 172.72 cm) bb MDM: 05:06 Patient medically screened. tw4 05:56 Differential diagnosis: Nonspecific abd pain, gastritis, pancreatitis, viral tw4 gastroenteritis, gastroenteritis. Data reviewed: vital signs, nurses notes. Counseling: I had a detailed discussion with the patient and/or guardian regarding: the historical points, exam findings, and any diagnostic results supporting the discharge/admit diagnosis, lab results. Medication response: Zofran relieved the patient's nausea. Response to treatment: and as a result, I will discharge patient. Special discussion: Based on the patient's Hx, exam, and Dx evaluation, there is no indication for emergent surgery or inpatient Tx. It is understood by the patient/guardian that if the Sx's persist or worsen they need to return immediately for re-evaluation. I discussed with the patient/guardian in detail that at this point there is no indication for admission to the hospital. It is understood, however, that if the symptoms persist or worsen the patient needs to return immediately for re-evaluation. 06/15 04:57 Order name: Basic Metabolic Panel; Complete Time: 06:18 tw4 06/15 06:18 Interpretation: Within normal limits. 06/15 04:57 Order name: CBC with Diff; Complete Time: 06:18 tw4 06/15 06:18 Interpretation: Normal except: RBC 4.26; PLT 140. tw06/15 04:57 Order name: Creatinine for Radiology; Complete Time: 06:18 4 06/15 06:18 Interpretation: Within normal limits: CRE 0.89. 06/15 04:57 Order name: Hepatic Function; Complete Time: 06:18 tw4 06/15 06:18 Interpretation: Normal except: AST 54; GLOB 3.8. 06/15 04:57 Order name: Lipase; Complete Time: 06:18 tw4 06/15 04:57 Order name: IV Saline Lock; Complete Time: 05:29 tw4 06/15 04:57 Order name: Labs collected and sent; Complete Time: 05:29 tw4 Administered Medications: 05:29 Drug: NS 0.9% 1000 ml Route: IV; Rate: 1 bolus; Site: right antecubital; ak1 06:34 Follow up: IV Status: Completed infusion; IV Intake: 1000ml ak1 05:29 Drug: Zofran 4 mg Route: IVP; Site: right antecubital; ak1 05:52 Follow up: Response: No adverse reaction ak1 05:52 Drug: LoMOTIL 1 tabs Route: PO; ak1 06:15 Follow up: Response: No adverse reaction ak1 06:22 Drug: GI Cocktail with - (Phenobarbital-Belladonna 10 ml, Maalox Suspension 30 ak1 ml, Lidocaine Liquid 2 % 20 ml) Route: PO; 06:34 Follow up: Response: No adverse reaction ak1 06:22 Drug: Bentyl 20 mg Route: PO; ak1 06:34 Follow up: Response: No adverse reaction ak1 Disposition: 06/15/19 06:19 Discharged to Home. Impression: Nausea and vomiting, Diarrhea, unspecified. - Condition is Stable. - Discharge Instructions: Diarrhea, Adult, Nausea and Vomiting, Adult, [id number]. - Prescriptions for Zofran 4 mg Oral Tablet - take 1 tablet by ORAL route every 12 hours As needed; 6 tablet. Lomotil 2.5- 0.025 mg Oral Tablet - take 2 tablet by ORAL route once daily As needed; 20 tablet. - Work release form, Medication Reconciliation Form, Thank You Letter, Antibiotic Education, Prescription Opioid Use form. - Follow up: Private Physician; When: Upon discharge from the Emergency Department; Reason: Recheck today's complaints, Continuance of care. - Problem is new. - Symptoms have improved. Signatures: Dispatcher [employer] EDDaniela Blackmon RN RN Korin Calderon RN RN ak1 Ronald Martinez MD MD tw4 Corrections: (The following items were deleted from the chart) 06:41 06:19 06/15/2019 06:19 Discharged to Home. Impression: Nausea and vomiting; Diarrhea, ak1 unspecified. Condition is Stable. Discharge Instructions: Diarrhea, Adult, Nausea and Vomiting, Adult, [id number]. Prescriptions for Zofran 4 mg Oral Tablet - take 1 tablet by ORAL route every 12 hours As needed; 6 tablet, Lomotil 2.5-0.025 mg Oral Tablet - take 2 tablet by ORAL route once daily As needed; 20 tablet. and Forms are Work release form, Medication Reconciliation Form, Thank You Letter, Antibiotic Education, Prescription Opioid Use. Follow up: Private Physician; When: Upon discharge from the Emergency Department; Reason: Recheck today's complaints, Continuance of care. Problem is new. Symptoms have improved. tw4
[2019-06-15 06:55] VITALS: TEMP 98.1
[2019-06-15 06:56] VITALS: O2SAT 97
[2019-06-15 06:58] VITALS: BP 161/114
--- OUTSIDE RECORDS SUMMARY | 2019-06-20 22:12 | XMS REPORT ---
:1980 [facility] Address [address] [place] [place] [address] Care Team Providers Name Role Phone Unavailable Unavailable Unavailable Payers Payer Name Policy Type Policy Number Effective Date Expiration Date Problems This patient has no known problems. Allergies, Adverse Reactions, Alerts Allergy Allergy Status Severity Reaction(s) Onset Inactive Treating Comments Name Type Date Date Clinician No Known DA Active U 2014-10 Allergies -21 00:00:0 0 Medications This patient has no known medications. Results Test Description Test Time Test Comments Text Results Atomic Results Result Comments B-TYPE NATRIURETIC PEPTIDE 2019-06-18 18:18:00 Test Item Value Reference Range Comments B-TYPE NATRIURETIC PEPTIDE (test code=BNP) 16 PG/ML 13-100 - CT CHEST W/O [id number] 18:14:00 Name: LEXA MORRIS JR [facility] : 1980 Age/S: 39 / M [address] [address] Unit #: [id number] Loc: [place] [address] Phys: Ana Ocampo APN Acct: [id number] Dis Date: Status : REG ER PHONE #: [phone] Exam Date: 06/18/2019 1750 FAX #: Reason: CHEST PAIN EXAMS: CPTCODE: [id number] CT CHEST W/O CONTRAST 88446 LOCATION: H43 EXAM: - CT CHEST W /O CONTRAST HISTORY: CHEST PAIN TECHNIQUE: Axial imaging of the chest from the base of the neck through the upper abdomen without the administration of intravenous contrast. Sagittal and coronal reconstructions. CT scanperformed using appropriate/available dose optimization/reduction techniques. DLP 610.64 mGy*cm COMPARISON:None. FINDINGS: The visualized thyroid gland is unremarkable. No mediastinal, hilar or axillary lymphadenopathy. Noncalcified normal caliber thoracic aorta. The heart size is normal. No pericardial effusion. No pleural effusions. The lungs are clear. Evaluation the visualized portion of the upper abdomen demonstrates diffuse low-density of the liver parenchyma consistent with hepatic steatosis. Postsurgical changes of prior cholecystectomy are present. The visualized osseous structures are intact. IMPRESSION: Unremarkable noncontrast CT chest examination. at 1814 Reported and signed by: FELA MINER MD. PAGE 1 Signed Report (CONTINUED) Name: LEXA MORRIS JR [facility] : 1980 Age/S: 39 / M [address] [address] Unit #: [id number] Loc: [place] [address] Phys: Ana Ocampo APN Acct: [id number] Dis Date: Status: REG ER PHONE # : [phone] Exam Date: 06/18/2019 1750 FAX #: Reason: CHEST PAIN EXAMS: CPT CODE: [id number] CT CHEST W/O CONTRAST 01775 <Continued> CC: Evaristo Macias MD; Ana Ocampo Technologist:Bouchra Malone (R) CTDI: 18 DLP: 610 Trnscb Date/Time: 06/18/2019 (1813) [email or web address] Orig Print D/T: S: 06/18/2019 (1817) PAGE 2 Signed ReportBASIC METABOLIC [id number] 16:29:00 Test Item Value Reference Range Comments SODIUM (test code=NA) 136 mmol/L 136-145 POTASSIUM (test code=K) 3.9 mmol/L 3.5-5.1 CHLORIDE (test code=CL) 99 mmol/L 98-107 CARBON DIOXIDE (test code=CO2) 30 mmol/L 21-32 GLUCOSE (test code=GLU) 145 mg/dL 70-100 BLOOD UREA NITROGEN (test 13 mg/dL 7-18 code=BUN) GLOMERULAR FILTRATION RATE > 60.00 >=60 Reporting units: (test code=GFR) mL/min/1.73m\\S\\2 (Modified MDRD formula)REFERENCE RANGE: > or=60 ml/min/1.73M2IF PATIENT IS -[place], MULTIPLY REPORTED RESULT BY1.21. CREATININE (test code=CREAT) 1.11 mg/dl 0.70-1.30 CALCIUM (test code=CA) 9.0 mg/dL 8.5-10.1 LIVER [id number] 16:29:00 Test Item Value Reference Range Comments TOTAL PROTEIN (test code=PROT) 8.2 g/dl 6.4-8.2 ALBUMIN (test code=ALB) 4.0 g/dl 3.4-5.0 BILIRUBIN TOTAL (test code=BILT) 0.4 mg/dL 0.2-1.0 BILIRUBIN DIRECT (test code=BILD) mg/dl 0.0-0.4 SGOT/AST (test code=AST) 53 U/L 15-37 SGPT/ALT (test code=ALT) 88 U/L 12-78 ALKALINE PHOSPHATASE TOTAL (test code=ALKP) 90 U/L 45-117 [id number] 16:29:00 Test Item Value Reference Range Comments TROPONIN-I (test <0.017 ng/ml 0.00-0.045 GUIDELINES: 0.08 - 0.09 code=TROPI) Indeterminate0.10 Risk Stratification Limit: Suggest sequential testing0.60 - 1.50 AMI cutoff: Myocardial Injury by WHO criteria BASIC METABOLIC [id number] 16:29:00 Test Item Value Reference Range Comments SODIUM (test code=NA) 136 mmol/L 136-145 POTASSIUM (test code=K) 3.9 mmol/L 3.5-5.1 CHLORIDE (test code=CL) 99 mmol/L 98-107 CARBON DIOXIDE (test code=CO2) 30 mmol/L 21-32 GLUCOSE (test code=GLU) 145 mg/dL 70-100 BLOOD UREA NITROGEN (test 13 mg/dL 18 code=BUN) GLOMERULAR FILTRATION RATE > 60.00 >=60 Reporting units: (test code=GFR) mL/min/1.73m\\S\\2 (Modified MDRD formula)REFERENCE RANGE: > or=60 ml/min/1.73M2IF PATIENT IS -[place], MULTIPLY REPORTED RESULT BY1.21. CREATININE (test code=CREAT) 1.11 mg/dl 0.70-1.30 CALCIUM (test code=CA) 9.0 mg/dL 8.5-10.1 LIVER [id number] 16:29:00 Test Item Value Reference Range Comments TOTAL PROTEIN (test code=PROT) 8.2 g/dl 6.4-8.2 ALBUMIN (test code=ALB) 4.0 g/dl 3.4-5.0 BILIRUBIN TOTAL (test code=BILT) 0.4 mg/dL 0.2-1.0 SGOT/AST (test code=AST) 53 U/L 15-37 SGPT/ALT (test code=ALT) 88 U/L 12-78 ALKALINE PHOSPHATASE TOTAL (test code=ALKP) 90 U/L 45-117 [id number] 16:29:00 Test Item Value Reference Range Comments TROPONIN-I (test <0.017 ng/ml 0.00-0.045 GUIDELINES: 0.08 - 0.09 code=TROPI) Indeterminate0.10 Risk Stratification Limit: Suggest sequential testing0.60 - 1.50 AMI cutoff: Myocardial Injury by WHO criteria DRUGS OF ABUSE [id number] 16:02:00 Test Item Value Reference Range Comments UR COCAINE (test code=COCAU) NEGATIVE ng/ml NEGATIVE UR CANNABINOIDS (test NEGATIVE ng/ml NEGATIVE code=CANU) UR AMPHETAMINE (test NEGATIVE ng/dl NEGATIVE THE URINE SPECIMEN WAS code=AMPHU) TESTED AT THE LISTED CUTOFFS DRUG CLASS INITIAL TEST LEVEL AMPHETAMINES 1000 NG/MLBARBITURATES 200 NG/MLBENZODIAZEPINES 200 NG/MLCOCAINE METABOLITE 300 NG/MLMARIJUANA METABOLITE 50 NG/MLOPIATES 2000 NG/MLPHENCYCLIDINE 25 NG/ML UR BARBITURATE (test NEGATIVE ng/ml NEGATIVE code=BARBU) UR BENZODIAZEPINE (test NEGATIVE ng/ml NEGATIVE code=BENZU) UR OPIATES QUAL (test NEGATIVE ng/ml NEGATIVE code=OPIAQLU) UR PHENCYCLIDINE (PCP) (test NEGATIVE ng/ml NEGATIVE SPECIMEN ANALYSIS WAS code=PHENCU) PERFORMED WITHOUT CHAIN OF CUSTODYHANDLING. THESE RESULTS SHOULD BE USED FOR MEDICAL PURPOSESONLY AND NOT FOR ANY LEGAL OR EMPLOYMENT EVALUATIONPURPOSES. BASIC METABOLIC [id number] 15:59:00 Test Item Value Reference Range Comments SODIUM (test code=NA) 136 mmol/L 136-145 POTASSIUM (test code=K) 3.9 mmol/L 3.5-5.1 CHLORIDE (test code=CL) 99 mmol/L 98-107 CARBON DIOXIDE (test code=CO2) 30 mmol/L 21-32 GLUCOSE (test code=GLU) 145 mg/dL 70-100 BLOOD UREA NITROGEN (test 13 mg/dL 7-18 code=BUN) GLOMERULAR FILTRATION RATE > 60.00 >=60 Reporting units: (test code=GFR) mL/min/1.73m\\S\\2 (Modified MDRD formula)REFERENCE RANGE: > or=60 ml/min/1.73M2IF PATIENT IS -[place], MULTIPLY REPORTED RESULT BY1.21. CREATININE (test code=CREAT) 1.11 mg/dl 0.70-1.30 CALCIUM (test code=CA) 9.0 mg/dL 8.5-10.1 [id number] 15:59:00 Test Item Value Reference Range Comments TROPONIN-I (test <0.017 ng/ml 0.00-0.045 GUIDELINES: 0.08 - 0.09 code=TROPI) Indeterminate0.10 Risk Stratification Limit: Suggest sequential testing0.60 - 1.50 AMI cutoff: Myocardial Injury by WHO criteria - XR CHEST 1 [id number] 15:55:00 FAX: Ana Ocampo [place]: [facility] St: REG FAX: No Primary Care Phys ------ Name : LEXA MORRIS JR [place] : 03/1980 Age/S: 39/M [address] [address] Unit #: [id number] Loc: [place] [address] Phys: Ana Ocampo LINA Acct: [id number] Dis Date: Status: REG ER PHONE #: [phone] Exam Date: 06/18/2019 1530 FAX #: Reason: chest pain EXAMS: CPT CODE: [id number] XR CHEST 1 V 62668 - XR CHEST 1 V INDICATION: chest pain Comparison: July 16, 2014 Findings: Lungs are hypoventilated. There is no pneumothorax. There is mild to moderate central vasculature congestion/engorgement. Heart size is top normal. No pleural effusion seen. Bones are unremarkable. IMPRESSION: Hypoventilatory changes the lungs with mild to moderate central vasculature congestion/engorgement. at 0865 Reported and signed by: Ilene Gardner MD CC: Ana Ocampo Technologist: Bouchra Malone (R) Trnscrd Date/Time/By: 06/18/2019 (6681) : By: [email or web address] Orig Print D/T : S: 06/18/2019 (6469) PAGE 1 Signed ReportCBC W /AUTO [id number] 15:39:00 Test Item Value Reference Range Comments WHITE BLOOD CELL (test code=WBC) 5.1 X10(3) 4.5-11.0 RED BLOOD CELL (test code=RBC) 4.54 X10(6) 4.3-5.9 HEMOGLOBIN (test code=HGB) 14.7 g/dL 13.5-18.0 HEMATOCRIT (test code=HCT) 43.2 % 42.0-52.0 MEAN CELL VOLUME (test code=MCV) 95.2 fL 78-100 MEAN CELL HGB (test code=MCH) 32.4 pg 26.0-34.0 MEAN CELL HGB CONCETRATION (test code=MCHC) 34.0 g/dl 30.0-37.0 RED CELL DISTRIBUTION WIDTH (test code=RDW) 13.4 % 11.5-14.5 PLATELET COUNT (test code=PLT) 168 X10(3) 150-350 MEAN PLATELET VOLUME (test code=MPV) 9.0 fl 8.7-11.4 NEUTROPHIL % (test code=NT%) 38.6 % 36.0-66.0 IMMATURE GRANULOCYTE % (test code=IG%) 0.2 % 0.0-2.0 LYMPHOCYTE % (test code=LY%) 48.0 % 16-50 MONOCYTE % (test code=MO%) 10.2 % 0.0-13.0 EOSINOPHIL % (test code=EO%) 2.4 % 0.0-4.5 BASOPHIL % (test code=BA%) 0.6 % 0.0-1.5 NEUTROPHIL # (test code=NT#) 2.0 X10(3) 1.7-7.7 IMMATURE GRANULOCYTE # (test code=IG#) 0.01 X10(3)uL 0.00-0.03 LYMPHOCYTE # (test code=LY#) 2.4 X10(3) 1.0-4.8 MONOCYTE # (test code=MO#) 0.5 X10(3) 0.0-0.89 EOSINOPHIL # (test code=EO#) 0.1 X10(3) 0.0-0.6 BASOPHIL # (test code=BA#) 0.0 X10(3) 0.0-0.2 RBC MORPHOLOGY REQUIRED (test code=RBCM) NO NORMAL URINALYSIS W REFLEX [id number] 18:13:00 Test Item Value Reference Range Comments UA COLOR (test code=COLU) YELLOW YELLOW UA APPEARANCE (test code=APPU) CLEAR CLEAR UA GLUCOSE DIPSTICK (test code=DGLUU) NORMAL mg/dl NORMAL UA BILIRUBIN DIPSTICK (test code=BILU) NEGATIVE mg/dl NEGATIVE UA KETONE DIPSTICK (test code=KETU) NEGATIVE mg/dl NEGATIVE UA SPECIFIC GRAVITY (test code=SGU) 1.015 1.001-1.035 UA BLOOD DIPSTICK (test code=LIZZIE) NEGATIVE /UL NEGATIVE UA PH DIPSTICK (test code=PHONG) 6.5 4.6-8.0 UA PROTEIN DIPSTICK (test code=PROU) NEGATIVE mg/dl NEGATIVE UA UROBILINIOGEN DIPSTICK (test code=URO) NORMAL mg/dl NORMAL UA NITRITE DIPSTICK (test code=VLADISLAV) NEGATIVE NEGATIVE UA LEUKOCYTE ESTERASE DIPSTICK (test NEGATIVE /UL NEGATIVE code=LEUU) UA COMMENT (test code=COMU) CLN CATCH UA MICROSCOPIC NEEDED? (test code=UAMICRO) N=NO UA MICRO COMPREHENSIVE METABOLIC [id number] 17:16:00 Test Item Value Reference Range Comments SODIUM (test code=NA) 140 mmol/L 136-145 POTASSIUM (test code=K) 4.0 mmol/L 3.5-5.1 CHLORIDE (test code=CL) 102 mmol/L 98-107 CARBON DIOXIDE (test code=CO2) 26 mmol/L 21-32 GLUCOSE (test code=GLU) 93 mg/dL 70-100 BLOOD UREA NITROGEN (test 26 mg/dL 7-18 code=BUN) GLOMERULAR FILTRATION RATE > 60.00 >=60 Reporting units: (test code=GFR) mL/min/1.73m\\S\\2 (Modified MDRD formula)REFERENCE RANGE: > or=60 ml/min/1.73M2IF PATIENT IS -[place], MULTIPLY REPORTED RESULT BY1.21. CREATININE (test code=CREAT) 1.05 mg/dl 0.70-1.30 TOTAL PROTEIN (test code=PROT) 8.3 g/dl 6.4-8.2 ALBUMIN (test code=ALB) 4.3 g/dl 3.4-5.0 CALCIUM (test code=CA) 9.2 mg/dL 8.5-10.1 BILIRUBIN TOTAL (test 0.5 mg/dL 0.2-1.0 code=BILT) SGOT/AST (test code=AST) 26 U/L 15-37 SGPT/ALT (test code=ALT) 49 U/L 12-78 ALKALINE PHOSPHATASE TOTAL 84 U/L 45-117 (test code=ALKP) [id number] 17:16:00 Test Item Value Reference Range Comments AMYLASE (test code=TOMMY) 39 IU/L 25-115 [id number] 17:16:00 Test Item Value Reference Range Comments LIPASE (test code=LIP) 169 U/L 73-393 CBC W/AUTO [id number] 17:05:00 Test Item Value Reference Range Comments WHITE BLOOD CELL (test code=WBC) 5.8 X10(3) 4.5-11.0 RED BLOOD CELL (test code=RBC) 5.09 X10(6) 4.3-5.9 HEMOGLOBIN (test code=HGB) 15.9 g/dL 13.5-18.0 HEMATOCRIT (test code=HCT) 47.8 % 42.0-52.0 MEAN CELL VOLUME (test code=MCV) 93.9 fL 78-100 MEAN CELL HGB (test code=MCH) 31.2 pg 26.0-34.0 MEAN CELL HGB CONCETRATION (test code=MCHC) 33.3 g/dl 30.0-37.0 RED CELL DISTRIBUTION WIDTH (test code=RDW) 12.6 % 11.5-14.5 PLATELET COUNT (test code=PLT) 218 X10(3) 150-350 MEAN PLATELET VOLUME (test code=MPV) 10.0 fl 8.7-11.4 NEUTROPHIL % (test code=NT%) 49.6 % 36.0-66.0 IMMATURE GRANULOCYTE % (test code=IG%) 0.2 % 0.0-2.0 LYMPHOCYTE % (test code=LY%) 34.8 % 16-50 MONOCYTE % (test code=MO%) 12.5 % 0.0-13.0 EOSINOPHIL % (test code=EO%) 2.4 % 0.0-4.5 BASOPHIL % (test code=BA%) 0.5 % 0.0-1.5 NEUTROPHIL # (test code=NT#) 2.9 X10(3) 1.7-7.7 IMMATURE GRANULOCYTE # (test code=IG#) 0.01 X10(3)uL 0.00-0.03 LYMPHOCYTE # (test code=LY#) 2.0 X10(3) 1.0-4.8 MONOCYTE # (test code=MO#) 0.7 X10(3) 0.0-0.89 EOSINOPHIL # (test code=EO#) 0.1 X10(3) 0.0-0.6 BASOPHIL # (test code=BA#) 0.0 X10(3) 0.0-0.2 RBC MORPHOLOGY REQUIRED (test code=RBCM) NO NORMAL LACTIC [id number] 17:05:00 Test Item Value Reference Range Comments LACTIC ACID (test code=LACT) 0.8 mmol/l 0.4-2.0 - CT ABD PELVIS [id number] 14:02:00 Name: LEXA MORRISe [place] : 1980 Age/S: 38 / M [address] [address] Unit #: [id number] Loc: [place] [address] Phys: Kalpana Lindseyrge Sam Feliz Acct: [id number] Dis Date: Status : REG ER PHONE #: [phone] Exam Date: 09/27/2018 4580 FAX #: Reason: diffuseabdominal cramping EXAMS: CPTCODE: [id number] CT ABD PELVIS W/CONT 19460 - CT ABD PELVIS W/CONT REASON FOR EXAM: diffuse abdominal cramping TECHNIQUE: Volumetric CT data acquisition of the abdomen and pelvis was performed after the administration of 94 mL Isovue-300 of IV contrast. Axial, , sagittal, and coronal data sets are provided. All CT scan to performed using radiation dose reduction technique. Technical factors are evaluated to insure appropriate moderation of exposure. Automated dose management technologies applied to adjust the radiation dose to minimize exposure well achieving a diagnostic quality image. COMPARISON: January 2014. FINDINGS: VISUALIZED THORAX: Unremarkable. ABDOMEN / PELVIS: Liver: Unremarkable. Gallbladder:Surgically absent. Spleen: Unremarkable. Pancreas: Unremarkable. Adrenal glands: Unremarkable. Kidneys / Ureters: Unremarkable. Small Bowel: Unremarkable. Colon : The colon is unremarkable. The appendix is normal. Bladder: Unremarkable. Reproductive organs No significant abnormality. Adenopathy: No significant adenopathy. Fluid: No free fluid or fluid collection. Vascular: No significant abnormality. Other: No free air. OSSEOUS STRUCTURES: Internally fixated left hip. IMPRESSION: 1.No acute process in the abdomen or pelvis. PAGE 1 Signed Report (CONTINUED) Name: LEXA MORRIS : 1980 Age/S: 38 / M [address] [address] Unit #: [id number] Loc: [place] [address] Phys: CésarDimitrios Jr Acct: [id number] Dis Date: Status: REG ER PHONE #: [phone] Exam Date: 09/27/2018 1350 FAX #: Reason: diffuse abdominal cramping EXAMS: CPT CODE: [id number] CT ABD PELVIS W/CONT 36291 <Continued> at 1402 Reported and signed by: PILAR CASTRO M.D. CC: Technologist: Bouchra Malone (R) CTDI: 26 DLP: 1457 Trnvtb Date/Time: 09/27 (1402) Hilaria Orig Print D/T: S: 09/27/2018 ( 1401) CTDI: 26 DLP: 1457 PAGE 2 Signed ReportURINALYSIS W REFLEX [id number] 13:19:00 Test Item Value Reference Range Comments UA COLOR (test code=COLU) YELLOW YELLOW UA APPEARANCE (test code=APPU) CLEAR CLEAR UA GLUCOSE DIPSTICK (test code=DGLUU) NORMAL mg/dl NORMAL UA BILIRUBIN DIPSTICK (test code=BILU) NEGATIVE mg/dl NEGATIVE UA KETONE DIPSTICK (test code=KETU) NEGATIVE mg/dl NEGATIVE UA SPECIFIC GRAVITY (test code=SGU) 1.020 1.001-1.035 UA BLOOD DIPSTICK (test code=LIZZIE) NEGATIVE /UL NEGATIVE UA PH DIPSTICK (test code=PHONG) 6.0 4.6-8.0 UA PROTEIN DIPSTICK (test code=PROU) NEGATIVE mg/dl NEGATIVE UA UROBILINIOGEN DIPSTICK (test code=URO) NORMAL mg/dl NORMAL UA NITRITE DIPSTICK (test code=VLADISLAV) NEGATIVE NEGATIVE UA LEUKOCYTE ESTERASE DIPSTICK (test NEGATIVE /UL NEGATIVE code=LEUU) UA COMMENT (test code=COMU) CLN CATCH UA MICROSCOPIC NEEDED? (test code=UAMICRO) N=NO UA MICRO COMPREHENSIVE METABOLIC [id number] 12:39:00 Test Item Value Reference Range Comments SODIUM (test code=NA) 139 mmol/L 136-145 POTASSIUM (test code=K) 4.3 mmol/L 3.5-5.1 CHLORIDE (test code=CL) 103 mmol/L 98-107 CARBON DIOXIDE (test code=CO2) 28 mmol/L 21-32 GLUCOSE (test code=GLU) 98 mg/dL 70-100 BLOOD UREA NITROGEN (test 15 mg/dL 7-18 code=BUN) GLOMERULAR FILTRATION RATE > 60.00 >=60 Reporting units: (test code=GFR) mL/min/1.73m\\S\\2 (Modified MDRD formula)REFERENCE RANGE: > or=60 ml/min/1.73M2IF PATIENT IS -[place], MULTIPLY REPORTED RESULT BY1.21. CREATININE (test code=CREAT) 0.96 mg/dl 0.70-1.30 TOTAL PROTEIN (test code=PROT) 7.8 g/dl 6.4-8.2 ALBUMIN (test code=ALB) 4.2 g/dl 3.4-5.0 CALCIUM (test code=CA) 9.2 mg/dL 8.5-10.1 BILIRUBIN TOTAL (test 0.8 mg/dL 0.2-1.0 code=BILT) SGOT/AST (test code=AST) 19 U/L 15-37 SGPT/ALT (test code=ALT) 40 U/L 12-78 ALKALINE PHOSPHATASE TOTAL 89 U/L 45-117 (test code=ALKP) [id number] 12:39:00 Test Item Value Reference Range Comments LIPASE (test code=LIP) 104 U/L 73-393 [id number] 12:39:00 Test Item Value Reference Range Comments TROPONIN-I (test <0.017 ng/ml 0.00-0.045 GUIDELINES: 0.08 - 0.09 code=TROPI) Indeterminate0.10 Risk Stratification Limit: Suggest sequential testing0.11 - 0.50 "[place]": Suggest sequential testing0.60 - 1.50 AMI cutoff: Myocardial Injury by WHO criteria CBC W/AUTO [id number] 12:25:00 Test Item Value Reference Range Comments WHITE BLOOD CELL (test code=WBC) 6.7 X10(3) 4.5-11.0 RED BLOOD CELL (test code=RBC) 4.80 X10(6) 4.3-5.9 HEMOGLOBIN (test code=HGB) 15.1 g/dL 13.5-18.0 HEMATOCRIT (test code=HCT) 44.5 % 42.0-52.0 MEAN CELL VOLUME (test code=MCV) 92.7 fL 78-100 MEAN CELL HGB (test code=MCH) 31.5 pg 26.0-34.0 MEAN CELL HGB CONCETRATION (test code=MCHC) 33.9 g/dl 32.0-36.0 RED CELL DISTRIBUTION WIDTH (test code=RDW) 12.4 % 11.5-14.5 PLATELET COUNT (test code=PLT) 199 X10(3) 150-350 MEAN PLATELET VOLUME (test code=MPV) 9.9 fl 8.7-11.4 NEUTROPHIL % (test code=NT%) 57.1 % 36.0-66.0 IMMATURE GRANULOCYTE % (test code=IG%) 0.0 % 0.0-2.0 LYMPHOCYTE % (test code=LY%) 31.8 % 16-50 MONOCYTE % (test code=MO%) 8.9 % 0.0-13.0 EOSINOPHIL % (test code=EO%) 1.6 % 0.0-4.5 BASOPHIL % (test code=BA%) 0.6 % 0.0-1.5 NEUTROPHIL # (test code=NT#) 3.9 X10(3) 1.7-7.7 IMMATURE GRANULOCYTE # (test code=IG#) 0.00 X10(3)uL 0.00-0.03 LYMPHOCYTE # (test code=LY#) 2.1 X10(3) 1.0-4.8 MONOCYTE # (test code=MO#) 0.6 X10(3) 0.0-0.89 EOSINOPHIL # (test code=EO#) 0.1 X10(3) 0.0-0.6 BASOPHIL # (test code=BA#) 0.0 X10(3) 0.0-0.2 RBC MORPHOLOGY REQUIRED (test code=RBCM) NO NORMAL
== END 2019-06-15 06:41 | disposition home or self-care (01) ==
LOC: ER 04:51
DX: R19.7 Diarrhea, unspecified (principal); I10 Essential (primary) hypertension; F41.9 Anxiety disorder, unspecified; E03.9 Hypothyroidism, unspecified
CPT/HCPCS: 36415; 80048; 80076; 83690; 85025; 96361; 96374; 99284; J2405; J7030